=== PATIENT | female | born 1955 | race American Indian/Alaskan Native ===

== ENCOUNTER 2018-07-31 20:26 | Inpatient (IN) | payer BC ==
--- NOTE | 2018-07-31 21:33 | Emergency Department Report ---
Blank Doc - Documentation Documentation: This is a 62-year-old female that presents with chest pain that describes as p ressure. Denies radiation or SOB. This initial assessment/diagnostic orders/clinical plan/treatment(s) is/are subject to change based on patient's health status, clinical progression and re-assessment by fellow clinical providers in the ED. Further treatment and workup at subsequent clinical providers discretion. Patient/guardians urged not to elope from the ED as their condition may be serious if not clinically assessed and managed. Initial orders include: 1- Patient sent to MAIN ED for further evaluation and treatment 2- labs 3- EKG 4- CXR
[2018-07-31 22:00] LABS: Basophils # (Auto) 0.1 K/mm3 (0.0-0.1); Basophils % (Auto) 1.1 % (0.0-1.8); Eosinophils # (Auto) 0.2 K/mm3 (0.0-0.4); Eosinophils % (Auto) 3.3 % (0.0-4.3); Hematocrit 34.5 % (30.3-42.9); Hemoglobin 11.5 gm/dl (10.1-14.3); Lymphocytes # (Auto) 2.7 K/mm3 (1.2-5.4); Lymphocytes % (Auto) 35.9 % (13.4-35.0); Mean Corpuscular HGB Conc 33 % (30-34); Mean Corpuscular Volume 80 fl (79-97); Monocytes # (Auto) 0.5 K/mm3 (0.0-0.8); Monocytes % (Auto) 6.5 % (0.0-7.3); Platelet Count 331 K/mm3 (140-440); Red Blood Count 4.31 M/mm3 (3.65-5.03); Red Cell Distribution Width 14.3 % (13.2-15.2)
[2018-07-31 22:14] LABS: BUN/Creatinine Ratio 16; Blood Urea Nitrogen 19 mg/dL (7-17); Calcium 9.6 mg/dL (8.4-10.2); Hemolysis Index 3; INR 0.92 (0.87-1.13)
[2018-07-31 22:15] LABS: Partial Thromboplastin Time 30.2 Sec. (24.2-36.6)
[2018-07-31 22:23] LABS: Bacteria,Urine 1+ /HPF (Negative); Bilirubin,Urine NEG (Negative); Blood,Urine SM (Negative); Color,Urine Yellow (Yellow); Mucus,Urine FEW /HPF; Protein,Urine <15 mg/dL mg/dL (Negative); Urobilinogen,Urine < 2.0 mg/dL (<2.0)
--- NOTE | 2018-07-31 23:13 | XRay Report ---
PROCEDURE: XR CHEST ROUTINE 2V TECHNIQUE: PA and lateral chest radiographs were obtained. HISTORY: Chest Pain COMPARISONS: None. FINDINGS: There is no evidence of infiltrate, pneumothorax or pleural fluid collection. The cardiac silhouette is normal size. The thoracic aorta is tortuous. The bony structures are notable for dextrocurvature of the thoracic spine. IMPRESSION: 1. No evidence of an acute pulmonary process. 2. Tortuosity thoracic aorta. 3. Dextrocurvature thoracic spine. This document is electronically signed by Jennifer Penaloza MD., August 01 2018 12:11:27 AM ET
--- NOTE | 2018-07-31 23:44 | Emergency Department Report ---
<CARMEN CHOWDARY - Last Filed: 08/18/18 03:47> ED General Adult HPI - General Chief complaint: Chest Pain Stated complaint: CHEST PRESSURE Time Seen by Provider: 07/31/18 21:31 Source: patient Mode of arrival: Ambulatory Limitations: No Limitations - History of Present Illness Initial comments: 62-year-old -Mac[place] female presents to the emergency room for pressure to the mid chest for 2 days. Patient reports he feels like something sitting there. Patient denies any shortness of breathing or nausea or vomiting. Patient does admit to a past medical history of hypertension and hyperthyroidism. Patient reports she's never had a cardiac workup. She does not have a primary care provider but does have a endocrine provider. Onset/Timin -: days(s) Location: chest Quality: other (pressure) Consistency: constant Improves with: none Worsens with: none Associated Symptoms: other (urinary frequency) Treatments Prior to Arrival: none - Related Data Home Medications Medication Instructions Recorded Confirmed Last Taken Olmesartan/Hydrochlorothiazide 1 tab PO QDAY 08/01/18 08/01/18 Unknown [Benicar HCT 40-25 mg] Previous Rx's Medication Instructions Recorded Last Taken Type Cyclobenzaprine [Flexeril 10 MG 5 mg PO TID PRN #15 tablet 08/03/18 Unknown Rx TAB] traMADol [Ultram 50 MG tab] 100 mg PO Q6H PRN #20 tablet 08/03/18 Unknown Rx Allergies Allergy/AdvReac Type Severity Reaction Status Date / Time No Known Allergies Allergy Verified 07/31/18 21:13 ED Review of Systems Comment: All other systems reviewed and negative Constitutional: denies: chills, fever Eyes: denies: eye pain, eye discharge, vision change ENT: denies: ear pain, throat pain Respiratory: denies: cough, shortness of breath, wheezing Cardiovascular: chest pain Endocrine: no symptoms reported Gastrointestinal: denies: abdominal pain, nausea, diarrhea Genitourinary: urgency, frequency Musculoskeletal: denies: back pain, joint swelling, arthralgia Skin: denies: rash, lesions Neurological: denies: headache, weakness, paresthesias Psychiatric: denies: anxiety, depression ED Past Medical Hx - Past Medical History Previous Medical History?: Yes Hx Hypertension: Yes Additional medical history: murmur. Hyperthyroid - Surgical History Past Surgical History?: Yes Additional Surgical History: back - Social History Smoking Status: Never Smoker Substance Use Type: None - Medications Home Medications: Home Medications Medication Instructions Recorded Confirmed Last Taken Type Olmesartan/Hydrochlorothiazide 1 tab PO QDAY 08/01/18 08/01/18 Unknown History [Benicar HCT 40-25 mg] Cyclobenzaprine [Flexeril 10 MG 5 mg PO TID PRN #15 tablet 08/03/18 Unknown Rx TAB] traMADol [Ultram 50 MG tab] 100 mg PO Q6H PRN #20 tablet 08/03/18 Unknown Rx ED Physical Exam - General Limitations: No Limitations General appearance: alert, in no apparent distress - Head Head exam: Present: atraumatic, normocephalic - Eye Eye exam: Present: normal appearance - ENT ENT exam: Present: mucous membranes moist - Respiratory Respiratory exam: Present: normal lung sounds bilaterally. Absent: chest wall tenderness - Cardiovascular Cardiovascular Exam: Present: regular rate, normal rhythm. Absent: systolic murmur, diastolic murmur, rubs, gallop - GI/Abdominal GI/Abdominal exam: Present: soft, normal bowel sounds - Extremities Exam Extremities exam: Present: normal inspection. Absent: pedal edema - Back Exam Back exam: Present: normal inspection, full ROM - Neurological Exam Neurological exam: Present: alert, oriented X3, normal gait - Psychiatric Psychiatric exam: Present: normal affect, normal mood - Skin Skin exam: Present: warm, dry, intact, normal color. Absent: rash ED Medical Decision Making - Lab Data Result diagrams: 08/02/18 08:48 08/03/18 07:49 Lab Results 07/31/18 07/31/18 07/31/18 Range/Units 21:43 21:51 21:51 WBC 7.5 (4.5-11.0) K/mm3 RBC 4.31 (3.65-5.03) M/mm3 Hgb 11.5 (10.1-14.3) gm/dl Hct 34.5 (30.3-42.9) % MCV 80 (79-97) fl MCH 27 L (28-32) pg MCHC 33 (30-34) % RDW 14.3 (13.2-15.2) % Plt Count 331 (140-440) K/mm3 Lymph % (Auto) 35.9 H (13.4-35.0) % Gage % (Auto) 6.5 (0.0-7.3) % Eos % (Auto) 3.3 (0.0-4.3) % Baso % (Auto) 1.1 (0.0-1.8) % Lymph # 2.7 (1.2-5.4) K/mm3 Gage # 0.5 (0.0-0.8) K/mm3 Eos # 0.2 (0.0-0.4) K/mm3 Baso # 0.1 (0.0-0.1) K/mm3 Seg Neutrophils % 53.2 (40.0-70.0) % Seg Neutrophils # 4.0 (1.8-7.7) K/mm3 PT 12.9 (12.2-14.9) Sec. INR 0.92 (0.87-1.13) APTT 30.2 (24.2-36.6) Sec. Sodium (137-145) mmol/L Potassium (3.6-5.0) mmol/L Chloride (98-107) mmol/L Carbon Dioxide (22-30) mmol/L Anion Gap mmol/L BUN (7-17) mg/dL Creatinine (0.7-1.2) mg/dL Estimated GFR ml/min BUN/Creatinine Ratio % Glucose (65-100) mg/dL Calcium (8.4-10.2) mg/dL Troponin T (0.00-0.029) ng/mL Urine Color Yellow (Yellow) Urine Turbidity Cloudy (Clear) Urine pH 6.0 (5.0-7.0) Ur Specific [place] 1.023 (1.003-1.030) Urine Protein <15 mg/dl (Negative) mg/dL Urine Glucose (UA) Neg (Negative) mg/dL Urine Ketones Neg (Negative) mg/dL Urine Blood Sm (Negative) Urine Nitrite Neg (Negative) Urine Bilirubin Neg (Negative) Urine Urobilinogen < 2.0 (<2.0) mg/dL Ur Leukocyte Esterase Lg (Negative) Urine WBC (Auto) 145.0 H (0.0-6.0) /HPF Urine RBC (Auto) 29.0 (0.0-6.0) /HPF U Epithel Cells (Auto) 13.0 (0-13.0) /HPF Urine Bacteria (Auto) 1+ (Negative) /HPF Urine Mucus Few /HPF 07/31/18 Range/Units 21:51 WBC (4.5-11.0) K/mm3 RBC (3.65-5.03) M/mm3 Hgb (10.1-14.3) gm/dl Hct (30.3-42.9) % MCV (79-97) fl MCH (28-32) pg MCHC (30-34) % RDW (13.2-15.2) % Plt Count (140-440) K/mm3 Lymph % (Auto) (13.4-35.0) % [place] % (Auto) (0.0-7.3) % Eos % (Auto) (0.0-4.3) % Baso % (Auto) (0.0-1.8) % Lymph # (1.2-5.4) K/mm3 Gage # (0.0-0.8) K/mm3 Eos # (0.0-0.4) K/mm3 Baso # (0.0-0.1) K/mm3 Seg Neutrophils % (40.0-70.0) % Seg Neutrophils # (1.8-7.7) K/mm3 PT (12.2-14.9) Sec. INR (0.87-1.13) APTT (24.2-36.6) Sec. Sodium 140 (137-145) mmol/L Potassium 3.5 L (3.6-5.0) mmol/L Chloride 104.1 (98-107) mmol/L Carbon Dioxide 27 (22-30) mmol/L Anion Gap 12 mmol/L BUN 19 H (7-17) mg/dL Creatinine 1.2 (0.7-1.2) mg/dL Estimated GFR 45 ml/min BUN/Creatinine Ratio 16 % Glucose 102 H (65-100) mg/dL Calcium 9.6 (8.4-10.2) mg/dL Troponin T < 0.010 (0.00-0.029) ng/mL Urine Color (Yellow) Urine Turbidity (Clear) Urine pH (5.0-7.0) Ur Specific [place] (1.003-1.030) Urine Protein (Negative) mg/dL Urine Glucose (UA) (Negative) mg/dL Urine Ketones (Negative) mg/dL Urine Blood (Negative) Urine Nitrite (Negative) Urine Bilirubin (Negative) Urine Urobilinogen (<2.0) mg/dL Ur Leukocyte Esterase (Negative) Urine WBC (Auto) (0.0-6.0) /HPF Urine RBC (Auto) (0.0-6.0) /HPF U Epithel Cells (Auto) (0-13.0) /HPF Urine Bacteria (Auto) (Negative) /HPF Urine Mucus /HPF - EKG Data Rate: bradycardia - Radiology Data Radiology results: report reviewed Patient: NEFTALY MAYER MR#: [id number] : 1955 Acct:[id number] Age/Sex: 62 / F ADM Date: 07/31/18 Loc: ED Attending Dr: Ordering Physician: ANGELINA CRAIN NP Date of Service: 07/31/18 Procedure(s): XR chest routine 2V Accession Number(s): [id number] cc: ANGELINA CRAIN NP Fluoro Time In Minutes: PROCEDURE: XR CHEST ROUTINE 2V TECHNIQUE: PA and lateral chest radiographs were obtained. HISTORY: Chest Pain COMPARISONS: None. FINDINGS: There is no evidence of infiltrate, pneumothorax or pleural fluid collection. The cardiac silhouette is normal size. The thoracic aorta is tortuous. The bony structures are notable for dextrocurvature of the thoracic spine. IMPRESSION: 1. No evidence of an acute pulmonary process. 2. Tortuosity thoracic aorta. 3. Dextrocurvature thoracic spine. This document is electronically signed by Jennifer Penaloza MD., August 01 2018 12:11:27 AM ET Transcribed By: ED Dictated By: JENNIFER PENALOZA MD Electronically Authenticated By: JENNIFER PENALOZA MD Signed Date/Time: 07/31/183 DD/ 27 TD/TT: 07/31/182228 Critical Care Time: Yes (30) ED Disposition Clinical Impression: Chest pain at rest Disposition: DC-[id number] OP ADMIT IP TO THIS HOSP Is pt being admited?: No Condition: Stable <GEORGIANA CHAVEZ - Last Filed: 08/19/18 18:35> ED Review of Systems ROS: Stated complaint: CHEST PRESSURE Other details as noted in HPI ED Course Vital Signs 07/31/18 07/31/18 08/01/18 21:14 21:31 02:31 Temperature 97.9 F 97.9 F Pulse Rate 63 63 Respiratory 18 18 Rate Blood Pressure 133/92 133/92 Blood Pressure [Right] O2 Sat by Pulse 98 98 98 Oximetry 08/01/18 08/01/18 08/01/18 02:33 02:41 02:51 Temperature Pulse Rate Respiratory 18 Rate Blood Pressure 129/84 129/84 Blood Pressure [Right] O2 Sat by Pulse 99 99 99 Oximetry 08/01/18 08/01/18 08/01/18 03:01 03:11 03:13 Temperature 97.8 F Pulse Rate 52 L Respiratory 15 Rate Blood Pressure 130/85 130/85 Blood Pressure 118/68 [Right] O2 Sat by Pulse 100 99 99 Oximetry 08/01/18 08/01/18 08/01/18 03:21 03:31 03:41 Temperature Pulse Rate Respiratory Rate Blood Pressure 130/85 130/85 130/85 Blood Pressure [Right] O2 Sat by Pulse 98 99 93 Oximetry ED Medical Decision Making - Lab Data Result diagrams: 08/02/18 08:48 08/03/18 07:49 Critical care attestation.: If time is entered above; I have spent that time in minutes in the direct care of this critically ill patient, excluding procedure time.
[2018-08-01] MEDS ORDERED: MACROBID PO ONE (00:53)
[2018-08-01] MEDS ORDERED: NACL 0.9% 500 ML 500 ML IV ONE (01:00)
[2018-08-01] MEDS ORDERED: LEVAQUIN 500MG/100ML 500 MG/100 ML BAG IV ONE (01:00)
[2018-08-01] MEDS ORDERED: SODIUM CHLORIDE FLUSH SYRINGE 10 ML IV PRN ×2 (01:12)
[2018-08-01] MEDS ORDERED: TYLENOL PO PRN (01:12)
[2018-08-01] MEDS ORDERED: MORPHINE IV PRN (01:12)
[2018-08-01] MEDS ORDERED: NITROSTAT SL PRN (01:13)
--- NOTE | 2018-08-01 01:28 | History and Physical Report ---
<NELSON CASE - Last Filed: 08/01/18 02:07> History of Present Illness Date of examination: 08/01/18 Date of admission: 08/01/2018 Chief complaint: Chest pressure History of present illness: 62-year-old -Vietnamese female with history of hypertension and hyperthyroidism presents to [facility] ED with complaints of substernal right sided chest pain. Patient is an employee of [employer] and decided to come to the ED to get checked out after experiencing intermittent chest pain for the past 2-3 days. She states that she has been unable to get comfortable in the bed due to right- sided chest pressure. She describes her pain as "chest pressure" and rates it 6/10. Her chest pain is nonradiating. Patient states that she has never had a cardiac workup and does not have a PCP. She follows with [facility] for her hyperthyroidism. Denies nausea, vomiting, diaphoresis, radiation of pain, cough, hemoptysis, dyspnea, headache, recent sick contact. Past History Past Medical History: hypertension, other (hyperthyroidism) Past Surgical History: Other (Back surgery) Social history: no significant social history Family history: no significant family history Medications and Allergies Allergies Allergy/AdvReac Type Severity Reaction Status Date / Time No Known Allergies Allergy Verified 07/31/18 21:13 Home Medications Medication Instructions Recorded Confirmed Last Taken Type Olmesartan/Hydrochlorothiazide 1 tab PO QDAY 08/01/18 08/01/18 Unknown History [Benicar HCT 40-25 mg] Active Meds: Active Medications Acetaminophen (Tylenol) 650 mg PO Q4H PRN PRN Reason: Pain MILD(1-3)/Fever >100.5/[place] Aspirin (Baby Aspirin) 81 mg PO QDAY SILAS Atorvastatin Calcium (Lipitor) 20 mg PO QHS SILAS Clopidogrel Bisulfate (Plavix) 75 mg PO QDAY SILAS Sodium Chloride (Nacl 0.9% 500 Ml) 500 mls @ 999 mls/hr IV ONCE ONE Stop: 08/01/18 01:30 Levofloxacin/Dextrose (Levaquin 500mg/100ml) 500 mg in 100 mls @ 100 mls/hr IV ONCE ONE Stop: 08/01/18 01:59 Morphine Sulfate (Morphine) 2 mg IV Q4H PRN PRN Reason: Pain, Moderate (4-6) Stop: 08/02/18 23:59 Nitroglycerin (Nitrostat) 0.4 mg SL Q5M PRN PRN Reason: Chest Pain Ondansetron HCl (Zofran) 4 mg IV Q8H PRN PRN Reason: Nausea And Vomiting Sodium Chloride (Sodium Chloride Flush Syringe 10 Ml) 10 ml IV BID SILAS Sodium Chloride (Sodium Chloride Flush Syringe 10 Ml) 10 ml IV PRN PRN PRN Reason: LINE FLUSH Sodium Chloride (Sodium Chloride Flush Syringe 10 Ml) 10 ml IV PRN PRN PRN Reason: LINE FLUSH Review of Systems All systems: negative (reviewed and no additional remarkable complaints except as noted below) Cardiovascular: chest pain (chest pressure) Exam - Physical Exam Narrative exam: Physical exam General appearance: Present: No acute distress, alert and oriented 3, pleasant, older adult female - EENT Eyes: Present: PERRL, EOM intact ENT: hearing intact, normal dentition - Neck Neck: Present: supple, normal ROM - Respiratory Respiratory effort: Non-labored Respiratory: bilateral: diminished (bases) - Cardiovascular Heart rate: 58 (bpm) Rhythm: Sinus bradycardia, Heart Sounds: Present: S1 & S2. Absent: rub, click - Extremities Extremities: no ischemia, pulses intact, - Peripheral Assessment Peripheral Pulses: within normal limits - Abdominal General gastrointestinal: soft, non-tender, normal bowel sounds - Integumentary Integumentary: Present: warm, dry - Musculoskeletal Musculoskeletal: Able to move all extremities - Psychiatric Psychiatric: CN II-XII intact, cooperative - Constitutional Vitals: Temp Pulse Resp BP Pulse Ox 97.9 F 63 18 133/92 98 07/31/18 21:31 07/31/18 21:31 07/31/18 21:31 07/31/18 21:31 07/31/18 21:31 Results - Labs CBC & Chem 7: 07/31/18 21:51 07/31/18 21:51 Labs: Laboratory Last Values WBC 7.5 K/mm3 (4.5-11.0) 07/31/18 21:51 RBC 4.31 M/mm3 (3.65-5.03) 07/31/18 21:51 Hgb 11.5 gm/dl (10.1-14.3) 07/31/18 21:51 Hct 34.5 % (30.3-42.9) 07/31/18 21:51 MCV 80 fl (79-97) 07/31/18 21:51 MCH 27 pg (28-32) L 07/31/18 21:51 MCHC 33 % (30-34) 07/31/18 21:51 RDW 14.3 % (13.2-15.2) 07/31/18 21:51 Plt Count 331 K/mm3 (140-440) 07/31/18 21:51 Lymph % (Auto) 35.9 % (13.4-35.0) H 07/31/18 21:51 [place] % (Auto) 6.5 % (0.0-7.3) 07/31/18 21:51 Eos % (Auto) 3.3 % (0.0-4.3) 07/31/18 21:51 Baso % (Auto) 1.1 % (0.0-1.8) 07/31/18 21:51 Lymph # 2.7 K/mm3 (1.2-5.4) 07/31/18 21:51 [place] # 0.5 K/mm3 (0.0-0.8) 07/31/18 21:51 Eos # 0.2 K/mm3 (0.0-0.4) 07/31/18 21:51 Baso # 0.1 K/mm3 (0.0-0.1) 07/31/18 21:51 Seg Neutrophils % 53.2 % (40.0-70.0) 07/31/18 21:51 Seg Neutrophils # 4.0 K/mm3 (1.8-7.7) 07/31/18 21:51 PT 12.9 Sec. (12.2-14.9) 07/31/18 21:51 INR 0.92 (0.87-1.13) 07/31/18 21:51 APTT 30.2 Sec. (24.2-36.6) 07/31/18 21:51 Sodium 140 mmol/L (137-145) 07/31/18 21:51 Potassium 3.5 mmol/L (3.6-5.0) L 07/31/18 21:51 Chloride 104.1 mmol/L (98-107) 07/31/18 21:51 Carbon Dioxide 27 mmol/L (22-30) 07/31/18 21:51 12 mmol/L 07/31/18 21:51 BUN 19 mg/dL (7-17) H 07/31/18 21:51 1.2 mg/dL (0.7-1.2) 07/31/18 21:51 Estimated GFR 45 ml/min 07/31/18 21:51 16 % 07/31/18 21:51 Glucose 102 mg/dL (65-100) H 07/31/18 21:51 Calcium 9.6 mg/dL (8.4-10.2) 07/31/18 21:51 < 0.010 ng/mL (0.00-0.029) 07/31/18 21:51 Yellow (Yellow) 07/31/18 21:43 Cloudy (Clear) 07/31/18 21:43 6.0 (5.0-7.0) 07/31/18 21:43 Ur Specific [place] 1.023 (1.003-1.030) 07/31/18 21:43 <15 mg/dl mg/dL (Negative) 07/31/18 21:43 Neg mg/dL (Negative) 07/31/18 21:43 Neg mg/dL (Negative) 07/31/18 21:43 Sm (Negative) 07/31/18 21:43 Neg (Negative) 07/31/18 21:43 Neg (Negative) 07/31/18 21:43 < 2.0 mg/dL (<2.0) 07/31/18 21:43 Ur Leukocyte Esterase Lg (Negative) 07/31/18 21:43 145.0 /HPF (0.0-6.0) H 07/31/18 21:43 29.0 /HPF (0.0-6.0) 07/31/18 21:43 U Epithel Cells (Auto) 13.0 /HPF (0-13.0) 07/31/18 21:43 1+ /HPF (Negative) 07/31/18 21:43 Few /HPF 07/31/18 21:43 - Imaging and Cardiology EKG: image reviewed (sinus bradycardia, 58 bpm, ) Chest x-ray: report reviewed (No evidence of an acute cardiopulmonary abnormalities. ), image reviewed Assessment and Plan Assessment and plan: 62-year-old -Vietnamese female with history of hypertension and hyperthyroidism presents to [facility] ED with complaints of substernal right sided chest pain. CXR unrevealing for acute cardio or pulmonary abnormalities. Troponin negative 1. D-Dimer elevated at 362.45. EKG sinus bradycardia at 58 bpm questionable old inferior infarct. Patient denies previous cardiac workup. Urine analysis showed urine WBC of 145. She will be admitted as OBS to telemetry unit for further evaluation. Acute chest pain Rule out ACS Rule out PE Urinary tract infection Hypertension TAMARA vs CKD3 History of hyperthyroidism Plan Continue supportive care Continuous telemetry monitoring Repeat troponin pending Lipid panel pending V/Q scan pending Echo and Lexiscan pending Cardiology consult Urine culture pending Start Rocephin 1 g every 24 hours Start ASA, Statin Monitor BMP BUN 19, GFR 45 no baseline labs on file. Will hydrate with NS@ 125ml/hr; if no improvement will consider consulting Nephrology Monitor BP Losartan 25 mg daily; IV hydralazine when necessary DVT PPX on Lovenox and SCD's Medication reconciliation pending Advance Directives: No VTE prophylaxis?: Chemical Plan of care discussed with patient/family: Yes <CHRISTINA QUICK E - Last Filed: 08/01/18 06:44> Medications and Allergies Active Meds: Active Medications Acetaminophen (Tylenol) 650 mg PO Q4H PRN PRN Reason: Pain MILD(1-3)/Fever >100.5/[place] Aspirin (Baby Aspirin) 81 mg PO QDAY SILAS Atorvastatin Calcium (Lipitor) 20 mg PO QHS SILAS Clopidogrel Bisulfate (Plavix) 75 mg PO QDAY SILAS Enoxaparin Sodium (Lovenox) 40 mg SUB-Q QDAY@2200 SILAS Hydralazine HCl (Apresoline) 10 mg IV Q4H PRN PRN Reason: Blood Pressure Ceftriaxone Sodium (Rocephin/Ns 1 Gm/50 Ml) 1 gm in 50 mls @ 100 mls/hr IV Q24HR SILAS; Protocol Sodium Chloride (Nacl 0.9% 1000 Ml) 1,000 mls @ 125 mls/hr IV DIRECT SILAS Losartan Potassium (Cozaar) 25 mg PO QDAY SILAS Morphine Sulfate (Morphine) 2 mg IV Q4H PRN PRN Reason: Pain, Moderate (4-6) Stop: 08/02/18 23:59 Nitroglycerin (Nitrostat) 0.4 mg SL Q5M PRN PRN Reason: Chest Pain Ondansetron HCl (Zofran) 4 mg IV Q8H PRN PRN Reason: Nausea And Vomiting Sodium Chloride (Sodium Chloride Flush Syringe 10 Ml) 10 ml IV BID SILAS Sodium Chloride (Sodium Chloride Flush Syringe 10 Ml) 10 ml IV PRN PRN PRN Reason: LINE FLUSH Sodium Chloride (Sodium Chloride Flush Syringe 10 Ml) 10 ml IV PRN PRN PRN Reason: LINE FLUSH Exam - Constitutional Vitals: Temp Pulse Resp BP Pulse Ox 97.9 F 63 18 133/92 99 07/31/18 21:31 07/31/18 21:31 08/01/18 02:33 07/31/18 21:31 08/01/18 02:33 Results - Labs CBC & Chem 7: 07/31/18 21:51 07/31/18 21:51 Labs: Laboratory Last Values WBC 7.5 K/mm3 (4.5-11.0) 07/31/18 21:51 RBC 4.31 M/mm3 (3.65-5.03) 07/31/18 21:51 Hgb 11.5 gm/dl (10.1-14.3) 07/31/18 21:51 Hct 34.5 % (30.3-42.9) 07/31/18 21:51 MCV 80 fl (79-97) 07/31/18 21:51 MCH 27 pg (28-32) L 07/31/18 21:51 MCHC 33 % (30-34) 07/31/18 21:51 RDW 14.3 % (13.2-15.2) 07/31/18 21:51 Plt Count 331 K/mm3 (140-440) 07/31/18 21:51 Lymph % (Auto) 35.9 % (13.4-35.0) H 07/31/18 21:51 [place] % (Auto) 6.5 % (0.0-7.3) 07/31/18 21:51 Eos % (Auto) 3.3 % (0.0-4.3) 07/31/18 21:51 Baso % (Auto) 1.1 % (0.0-1.8) 07/31/18 21:51 Lymph # 2.7 K/mm3 (1.2-5.4) 07/31/18 21:51 [place] # 0.5 K/mm3 (0.0-0.8) 07/31/18 21:51 Eos # 0.2 K/mm3 (0.0-0.4) 07/31/18 21:51 Baso # 0.1 K/mm3 (0.0-0.1) 07/31/18 21:51 Seg Neutrophils % 53.2 % (40.0-70.0) 07/31/18 21:51 Seg Neutrophils # 4.0 K/mm3 (1.8-7.7) 07/31/18 21:51 PT 12.9 Sec. (12.2-14.9) 07/31/18 21:51 INR 0.92 (0.87-1.13) 07/31/18 21:51 APTT 30.2 Sec. (24.2-36.6) 07/31/18 21:51 362.45 ng/mlDDU (0-234) H 08/01/18 01:19 Sodium 140 mmol/L (137-145) 07/31/18 21:51 Potassium 3.5 mmol/L (3.6-5.0) L 07/31/18 21:51 Chloride 104.1 mmol/L (98-107) 07/31/18 21:51 Carbon Dioxide 27 mmol/L (22-30) 07/31/18 21:51 12 mmol/L 07/31/18 21:51 BUN 19 mg/dL (7-17) H 07/31/18 21:51 1.2 mg/dL (0.7-1.2) 07/31/18 21:51 Estimated GFR 45 ml/min 07/31/18 21:51 16 % 07/31/18 21:51 Glucose 102 mg/dL (65-100) H 07/31/18 21:51 Calcium 9.6 mg/dL (8.4-10.2) 07/31/18 21:51 < 0.010 ng/mL (0.00-0.029) 08/01/18 01:19 Triglycerides 125 mg/dL (2-149) 08/01/18 01:19 Cholesterol 187 mg/dL (50-199) 08/01/18 01:19 114 mg/dL (50-130) 08/01/18 01:19 68 mg/dL (40-59) H 08/01/18 01:19 2.75 % 08/01/18 01:19 Yellow (Yellow) 07/31/18 21:43 Cloudy (Clear) 07/31/18 21:43 6.0 (5.0-7.0) 07/31/18 21:43 Ur Specific [place] 1.023 (1.003-1.030) 07/31/18 21:43 <15 mg/dl mg/dL (Negative) 07/31/18 21:43 Neg mg/dL (Negative) 07/31/18 21:43 Neg mg/dL (Negative) 07/31/18 21:43 Sm (Negative) 07/31/18 21:43 Neg (Negative) 07/31/18 21:43 Neg (Negative) 07/31/18 21:43 < 2.0 mg/dL (<2.0) 07/31/18 21:43 Ur Leukocyte Esterase Lg (Negative) 07/31/18 21:43 145.0 /HPF (0.0-6.0) H 07/31/18 21:43 29.0 /HPF (0.0-6.0) 07/31/18 21:43 U Epithel Cells (Auto) 13.0 /HPF (0-13.0) 07/31/18 21:43 1+ /HPF (Negative) 07/31/18 21:43 Few /HPF 07/31/18 21:43 Assessment and Plan Assessment and plan: 62-year-old lady with a history of hypertension, hypothyroidism, some emergency room with complaints of right-sided chest pain. Agree with as discussed above except d/c echo, cardiology consult
[2018-08-01] MEDS ORDERED: APRESOLINE IV PRN (01:40)
[2018-08-01 02:08] LABS: Chol/HDL Ratio 2.75 %; HDL Cholesterol 68 mg/dL (40-59); LDL Cholesterol,Direct 114 mg/dL (50-130)
[2018-08-01] MEDS: NACL 0.9% 1000 ML 1,000 ML IV SCH ×3 (05:06→21:37)
--- NOTE | 2018-08-01 09:12 | Nuclear Medicine Report ---
LUNG SCAN, VENTILATION AND PERFUSION: History: Chest pain. Technique: 5mci of Tc99m MAA was infused for the perfusion images. 15mci XE 133 gas was inhaled for the ventilatory images. Correlation is made with a chest x-ray dated 07/31/18. Findings: Inhalation of Xenon gas demonstrates a normal distribution of the activity throughout both lungs. The wash out phases show no focal retention of activity. After injection of Technetium 99m macroaggregated albumin gamma camera imaging of the lungs in multiple projections demonstrates normal pulmonary contours with a homogeneous distribution of activity. No focal areas of perfusion deficiency are identified. IMPRESSION: Low probability for pulmonary embolus.
[2018-08-01] MEDS ORDERED: PLAVIX PO SCH (10:00)
[2018-08-01] MEDS ORDERED: PERCOCET 5/325 PO PRN (11:01)
[2018-08-01] MEDS: ROCEPHIN/NS 1 GM/50 ML 1 GM/50 ML BAG IV SCH (11:34)
[2018-08-01] MEDS: COZAAR PO SCH (11:35)
[2018-08-01] MEDS: SODIUM CHLORIDE FLUSH SYRINGE 10 ML IV SCH ×2 (11:35→23:54)
[2018-08-01] MEDS: PERCOCET 5/325 PO PRN ×2 (13:29→13:33)
--- NOTE | 2018-08-01 14:45 | Progress Note ---
Assessment and Plan Assessment and plan: 62-year-old -[place] female with history of hypertension and hyperthyroidism presents to [facility] ED with complaints of substernal right sided chest pain. CXR unrevealing for acute cardio or pulmonary abnormalities. Troponin negative 3. D-Dimer elevated at 362 and V/Q scan was negative. Urine analysis showed urine WBC of 145. Acute chest pain - Cardiac enzymes are negative, EKG no STEMI - Stress test is pending, will be done tomorrow because of the VQ scan - Pain control with tramadol Elevated d-dimer; VQ scan low probability for PE Urinary tract infection; patient is on Rocephin Hypertension; resume medications TAMARA vs CKD3; creatinine this morning is 1.3. I'll hold the losartan History of hyperthyroidism; not on any medication DVT prophylaxis - On Lovenox 30 mg Disposition - Continue inpatient care - Will be discharged tomorrow if stress is negative History Interval history: Patient was seen in urology's morning, patient still complained of chest pain. Hospitalist Physical - Physical exam Narrative exam: Not in cardiopulmonary distress. The patient appeared well nourished and normally developed. Vital signs as documented. Head exam is unremarkable. No scleral icterus . Neck is without jugular venous distension, thyromegaly, or carotid bruits. Lungs are clear to auscultation. Cardiac exam reveals regular rate and Rhythm. First and second heart sounds normal. No murmurs, rubs or gallops. Abdominal exam reveals normal bowel sounds, no masses, no organomegaly and no aortic enlargement. Extremities are nonedematous and both femoral and pedal pulses are normal. 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 No focal weakness. - Constitutional Vitals: Temp Pulse Resp BP Pulse Ox 98.3 F 60 16 143/85 99 08/01/18 07:24 08/01/18 10:38 08/01/18 07:24 08/01/18 07:24 08/01/18 07:24 Results - Labs CBC & Chem 7: 08/02/18 08:48 08/02/18 08:48 Labs: Laboratory Last Values WBC 7.5 K/mm3 (4.5-11.0) 07/31/18 21:51 RBC 4.31 M/mm3 (3.65-5.03) 07/31/18 21:51 Hgb 11.5 gm/dl (10.1-14.3) 07/31/18 21:51 Hct 34.5 % (30.3-42.9) 07/31/18 21:51 MCV 80 fl (79-97) 07/31/18 21:51 MCH 27 pg (28-32) L 07/31/18 21:51 MCHC 33 % (30-34) 07/31/18 21:51 RDW 14.3 % (13.2-15.2) 07/31/18 21:51 Plt Count 331 K/mm3 (140-440) 07/31/18 21:51 Lymph % (Auto) 35.9 % (13.4-35.0) H 07/31/18 21:51 [place] % (Auto) 6.5 % (0.0-7.3) 07/31/18 21:51 Eos % (Auto) 3.3 % (0.0-4.3) 07/31/18 21:51 Baso % (Auto) 1.1 % (0.0-1.8) 07/31/18 21:51 Lymph # 2.7 K/mm3 (1.2-5.4) 07/31/18 21:51 [place] # 0.5 K/mm3 (0.0-0.8) 07/31/18 21:51 Eos # 0.2 K/mm3 (0.0-0.4) 07/31/18 21:51 Baso # 0.1 K/mm3 (0.0-0.1) 07/31/18 21:51 Seg Neutrophils % 53.2 % (40.0-70.0) 07/31/18 21:51 Seg Neutrophils # 4.0 K/mm3 (1.8-7.7) 07/31/18 21:51 PT 12.9 Sec. (12.2-14.9) 07/31/18 21:51 INR 0.92 (0.87-1.13) 07/31/18 21:51 APTT 30.2 Sec. (24.2-36.6) 07/31/18 21:51 362.45 ng/mlDDU (0-234) H 08/01/18 01:19 Sodium 140 mmol/L (137-145) 07/31/18 21:51 Potassium 3.5 mmol/L (3.6-5.0) L 07/31/18 21:51 Chloride 104.1 mmol/L (98-107) 07/31/18 21:51 Carbon Dioxide 27 mmol/L (22-30) 07/31/18 21:51 12 mmol/L 07/31/18 21:51 BUN 19 mg/dL (7-17) H 07/31/18 21:51 1.2 mg/dL (0.7-1.2) 07/31/18 21:51 Estimated GFR 45 ml/min 07/31/18 21:51 16 % 07/31/18 21:51 Glucose 102 mg/dL (65-100) H 07/31/18 21:51 Calcium 9.6 mg/dL (8.4-10.2) 07/31/18 21:51 < 0.010 ng/mL (0.00-0.029) 08/01/18 01:19 Triglycerides 125 mg/dL (2-149) 08/01/18 01:19 Cholesterol 187 mg/dL (50-199) 08/01/18 01:19 114 mg/dL (50-130) 08/01/18 01:19 68 mg/dL (40-59) H 08/01/18 01:19 2.75 % 08/01/18 01:19 Yellow (Yellow) 07/31/18 21:43 Cloudy (Clear) 07/31/18 21:43 6.0 (5.0-7.0) 07/31/18 21:43 Ur Specific [place] 1.023 (1.003-1.030) 07/31/18 21:43 <15 mg/dl mg/dL (Negative) 07/31/18 21:43 Neg mg/dL (Negative) 07/31/18 21:43 Neg mg/dL (Negative) 07/31/18 21:43 Sm (Negative) 07/31/18 21:43 Neg (Negative) 07/31/18 21:43 Neg (Negative) 07/31/18 21:43 < 2.0 mg/dL (<2.0) 07/31/18 21:43 Ur Leukocyte Esterase Lg (Negative) 07/31/18 21:43 145.0 /HPF (0.0-6.0) H 07/31/18 21:43 29.0 /HPF (0.0-6.0) 07/31/18 21:43 U Epithel Cells (Auto) 13.0 /HPF (0-13.0) 07/31/18 21:43 1+ /HPF (Negative) 07/31/18 21:43 Few /HPF 07/31/18 21:43 Active Medications - Current Medications Current Medications: Generic Name Dose Route Start Last Admin Trade Name Freq PRN Reason Stop Dose Admin Acetaminophen 650 mg 08/01/18 01:12 Tylenol PO Q4H PRN Pain MILD(1-3)/Fever >100.5/[place] Aspirin 81 mg 08/02/18 10:00 Baby Aspirin PO QDAY [facility] Atorvastatin Calcium 20 mg 08/01/18 22:00 Lipitor PO QHS SILAS Enoxaparin Sodium 40 mg 08/01/18 22:00 Lovenox SUB-Q QDAY@2200 SILAS Hydralazine HCl 10 mg 08/01/18 01:40 Apresoline IV Q4H PRN Blood Pressure Ceftriaxone Sodium 1 gm in 50 mls @ 100 mls/hr 08/01/18 10:00 08/01/18 11:34 Rocephin/Ns 1 Gm/50 Ml IV 100 mls/hr Q24HR SILAS Administration Protocol Sodium Chloride 1,000 mls @ 125 mls/hr 08/01/18 03:00 08/01/18 13:35 Nacl 0.9% 1000 Ml IV 125 mls/hr DIRECT SILAS Administration Losartan Potassium 25 mg 08/01/18 10:00 08/01/18 11:35 Cozaar PO 25 mg QDAY SILAS Administration Morphine Sulfate 2 mg 08/01/18 01:12 Morphine IV 08/02/18 23:59 Q4H PRN Pain, Moderate (4-6) Nitroglycerin 0.4 mg 08/01/18 01:13 Nitrostat SL Q5M PRN Chest Pain Ondansetron HCl 4 mg 08/01/18 01:12 Zofran IV Q8H PRN Nausea And Vomiting Oxycodone/Acetaminophen 2 tab 08/01/18 11:01 08/01/18 11:34 Percocet 5/325 PO 2 tab Q6H PRN Administration Pain, Moderate (4-6) Oxycodone/Acetaminophen 1 tab 08/01/18 12:03 08/01/18 13:33 Percocet 5/325 PO 1 tab Q6H PRN Administration Pain, Moderate (4-6) Sodium Chloride 10 ml 08/01/18 10:00 08/01/18 11:35 Sodium Chloride Flush Syringe 10 Ml IV 10 ml BID SILAS Administration Sodium Chloride 10 ml 08/01/18 01:12 Sodium Chloride Flush Syringe 10 Ml IV PRN PRN LINE FLUSH
[2018-08-01] MEDS: ZOFRAN IV PRN (19:58)
[2018-08-01] MEDS ORDERED: LOVENOX SUB-Q SCH (22:00)
[2018-08-02] MEDS: NACL 0.9% 1000 ML 1,000 ML IV SCH (06:26)
[2018-08-02 09:20] LABS: Basophils # (Auto) 0.1 K/mm3 (0.0-0.1); Basophils % (Auto) 1.2 % (0.0-1.8); Eosinophils # (Auto) 0.2 K/mm3 (0.0-0.4); Eosinophils % (Auto) 3.3 % (0.0-4.3); Hematocrit 32.6 % (30.3-42.9); Hemoglobin 10.8 gm/dl (10.1-14.3); Lymphocytes # (Auto) 2.6 K/mm3 (1.2-5.4); Lymphocytes % (Auto) 39.6 % (13.4-35.0); Mean Corpuscular HGB Conc 33 % (30-34); Mean Corpuscular Volume 80 fl (79-97); Monocytes # (Auto) 0.4 K/mm3 (0.0-0.8); Monocytes % (Auto) 5.4 % (0.0-7.3); Platelet Count 277 K/mm3 (140-440); Red Blood Count 4.08 M/mm3 (3.65-5.03); Red Cell Distribution Width 14.7 % (13.2-15.2)
[2018-08-02 09:34] LABS: Calcium 8.2 mg/dL (8.4-10.2)
[2018-08-02] MEDS: ROCEPHIN/NS 1 GM/50 ML 1 GM/50 ML BAG IV SCH (09:38)
[2018-08-02] MEDS: COZAAR PO SCH (09:38)
[2018-08-02] MEDS: PERCOCET 5/325 PO PRN (11:07)
[2018-08-02] MEDS: ZOFRAN IV PRN (12:47)
--- NOTE | 2018-08-02 15:18 | Progress Note ---
Assessment and Plan Assessment and plan: 62-year-old -Cub[place] female with history of hypertension and hyperthyroidism presents to [facility] ED with complaints of substernal right sided chest pain. CXR unrevealing for acute cardio or pulmonary abnormalities. Troponin negative 3. D-Dimer elevated at 362 and V/Q scan was negative. Urine analysis showed urine WBC of 145. Acute chest pain - Cardiac enzymes are negative, EKG no STEMI - Stress test is pending, will be done tomorrow because of the VQ scan - Pain control with tramadol Elevated d-dimer; VQ scan low probability for PE Urinary tract infection; patient is on Rocephin Hypertension; resume medications TAMARA vs CKD3; creatinine this morning is 1.3. I'll hold the losartan History of hyperthyroidism; not on any medication DVT prophylaxis - On Lovenox 30 mg Disposition - Continue inpatient care - Will be discharged tomorrow if stress is negative History Interval history: Patient was seen and evaluated this morning, patient still complaining of chest pain. Hospitalist Physical - Physical exam Narrative exam: Not in cardiopulmonary distress. The patient appeared well nourished and normally developed. Vital signs as documented. Head exam is unremarkable. No scleral icterus . Neck is without jugular venous distension, thyromegaly, or carotid bruits. Lungs are clear to auscultation. Cardiac exam reveals regular rate and Rhythm. First and second heart sounds normal. No murmurs, rubs or gallops. Abdominal exam reveals normal bowel sounds, no masses, no organomegaly and no aortic enlargement. Extremities are nonedematous and both femoral and pedal pulses are normal. 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 No focal weakness. - Constitutional Vitals: Temp Pulse Resp BP Pulse Ox 97.9 F 52 L 18 128/72 99 08/02/18 08:02 08/02/18 08:02 08/02/18 08:02 08/02/18 08:02 08/02/18 08:02 Results - Labs CBC & Chem 7: 08/02/18 08:48 08/02/18 08:48 Labs: Laboratory Last Values WBC 6.5 K/mm3 (4.5-11.0) 08/02/18 08:48 RBC 4.08 M/mm3 (3.65-5.03) 08/02/18 08:48 Hgb 10.8 gm/dl (10.1-14.3) 08/02/18 08:48 Hct 32.6 % (30.3-42.9) 08/02/18 08:48 MCV 80 fl (79-97) 08/02/18 08:48 MCH 27 pg (28-32) L 08/02/18 08:48 MCHC 33 % (30-34) 08/02/18 08:48 RDW 14.7 % (13.2-15.2) 08/02/18 08:48 Plt Count 277 K/mm3 (140-440) 08/02/18 08:48 Lymph % (Auto) 39.6 % (13.4-35.0) H 08/02/18 08:48 [place] % (Auto) 5.4 % (0.0-7.3) 08/02/18 08:48 Eos % (Auto) 3.3 % (0.0-4.3) 08/02/18 08:48 Baso % (Auto) 1.2 % (0.0-1.8) 08/02/18 08:48 Lymph # 2.6 K/mm3 (1.2-5.4) 08/02/18 08:48 [place] # 0.4 K/mm3 (0.0-0.8) 08/02/18 08:48 Eos # 0.2 K/mm3 (0.0-0.4) 08/02/18 08:48 Baso # 0.1 K/mm3 (0.0-0.1) 08/02/18 08:48 Seg Neutrophils % 50.5 % (40.0-70.0) 08/02/18 08:48 Seg Neutrophils # 3.3 K/mm3 (1.8-7.7) 08/02/18 08:48 PT 12.9 Sec. (12.2-14.9) 07/31/18 21:51 INR 0.92 (0.87-1.13) 07/31/18 21:51 APTT 30.2 Sec. (24.2-36.6) 07/31/18 21:51 362.45 ng/mlDDU (0-234) H 08/01/18 01:19 Sodium 142 mmol/L (137-145) 08/02/18 08:48 Potassium 3.7 mmol/L (3.6-5.0) 08/02/18 08:48 Chloride 109.3 mmol/L (98-107) H 08/02/18 08:48 Carbon Dioxide 22 mmol/L (22-30) 08/02/18 08:48 14 mmol/L 08/02/18 08:48 BUN 16 mg/dL (7-17) 08/02/18 08:48 1.3 mg/dL (0.7-1.2) H 08/02/18 08:48 Estimated GFR 50 ml/min 08/02/18 08:48 12 % 08/02/18 08:48 Glucose 90 mg/dL (65-100) 08/02/18 08:48 Calcium 8.2 mg/dL (8.4-10.2) L 08/02/18 08:48 < 0.010 ng/mL (0.00-0.029) 08/01/18 01:19 Triglycerides 125 mg/dL (2-149) 08/01/18 01:19 Cholesterol 187 mg/dL (50-199) 08/01/18 01:19 114 mg/dL (50-130) 08/01/18 01:19 68 mg/dL (40-59) H 08/01/18 01:19 2.75 % 08/01/18 01:19 Yellow (Yellow) 07/31/18 21:43 Cloudy (Clear) 07/31/18 21:43 6.0 (5.0-7.0) 07/31/18 21:43 Ur Specific [place] 1.023 (1.003-1.030) 07/31/18 21:43 <15 mg/dl mg/dL (Negative) 07/31/18 21:43 Neg mg/dL (Negative) 07/31/18 21:43 Neg mg/dL (Negative) 07/31/18 21:43 Sm (Negative) 07/31/18 21:43 Neg (Negative) 07/31/18 21:43 Neg (Negative) 07/31/18 21:43 < 2.0 mg/dL (<2.0) 07/31/18 21:43 Ur Leukocyte Esterase Lg (Negative) 07/31/18 21:43 145.0 /HPF (0.0-6.0) H 07/31/18 21:43 29.0 /HPF (0.0-6.0) 07/31/18 21:43 U Epithel Cells (Auto) 13.0 /HPF (0-13.0) 07/31/18 21:43 1+ /HPF (Negative) 07/31/18 21:43 Few /HPF 07/31/18 21:43 Active Medications - Current Medications Current Medications: Generic Name Dose Route Start Last Admin Trade Name Freq PRN Reason Stop Dose Admin Acetaminophen 650 mg 08/01/18 01:12 Tylenol PO Q4H PRN Pain MILD(1-3)/Fever >100.5/[place] Aspirin 81 mg 08/02/18 10:00 Baby Aspirin PO QDAY [facility] Atorvastatin Calcium 20 mg 08/01/18 22:00 08/01/18 21:45 Lipitor PO Not Given QHS [facility] Cyclobenzaprine HCl 5 mg 08/02/18 14:58 Flexeril PO TID [facility] Enoxaparin Sodium 40 mg 08/01/18 22:00 08/01/18 21:37 Lovenox SUB-Q 40 mg QDAY@2200 SILAS Administration Hydralazine HCl 10 mg 08/01/18 01:40 Apresoline IV Q4H PRN Blood Pressure Ceftriaxone Sodium 1 gm in 50 mls @ 100 mls/hr 08/01/18 10:00 08/02/18 09:38 Rocephin/Ns 1 Gm/50 Ml IV 100 mls/hr Q24HR SILAS Administration Protocol Sodium Chloride 1,000 mls @ 125 mls/hr 08/01/18 03:00 08/02/18 06:26 Nacl 0.9% 1000 Ml IV 125 mls/hr DIRECT SILAS Administration Losartan Potassium 25 mg 08/01/18 10:00 08/02/18 09:38 Cozaar PO 25 mg QDAY SILAS Administration Morphine Sulfate 2 mg 08/01/18 01:12 08/01/18 21:37 Morphine IV 08/02/18 23:59 2 mg Q4H PRN Administration Pain, Moderate (4-6) Nitroglycerin 0.4 mg 08/01/18 01:13 Nitrostat SL Q5M PRN Chest Pain Ondansetron HCl 4 mg 08/01/18 01:12 08/02/18 12:47 Zofran IV 4 mg Q8H PRN Administration Nausea And Vomiting Sodium Chloride 10 ml 08/01/18 10:00 08/01/18 23:54 Sodium Chloride Flush Syringe 10 Ml IV Not Given BID SILAS Sodium Chloride 10 ml 08/01/18 01:12 Sodium Chloride Flush Syringe 10 Ml IV PRN PRN LINE FLUSH Tramadol HCl 100 mg 08/02/18 14:57 Ultram PO Q6H PRN Pain, Moderate (4-6)
[2018-08-02] MEDS: FLEXERIL PO SCH ×2 (15:31→20:48)
[2018-08-02] MEDS: BABY ASPIRIN PO SCH (15:32)
[2018-08-02] MEDS: SODIUM CHLORIDE FLUSH SYRINGE 10 ML IV SCH (15:33)
[2018-08-02] MEDS: ULTRAM PO PRN ×2 (18:24→20:49)
[2018-08-02] MEDS ORDERED: LOVENOX SUB-Q SCH (22:00)
[2018-08-03] MEDS: SODIUM CHLORIDE FLUSH SYRINGE 10 ML IV SCH ×2 (05:24→12:32)
[2018-08-03 09:10] LABS: Calcium 8.7 mg/dL (8.4-10.2)
[2018-08-03] MEDS ORDERED: LEXISCAN IV ONE (09:30)
[2018-08-03 12:09] VITALS: BP 146/79
[2018-08-03] MEDS: FLEXERIL PO SCH ×2 (12:30→13:17)
[2018-08-03] MEDS: ROCEPHIN/NS 1 GM/50 ML 1 GM/50 ML BAG IV SCH (12:31)
[2018-08-03] MEDS: BABY ASPIRIN PO SCH (12:31)
[2018-08-03] MEDS: ULTRAM PO PRN (12:41)
--- NOTE | 2018-08-03 13:53 | Discharge Summary ---
Providers - Providers Date of Admission: 08/02/18 10:04 Attending physician: LEONIDAS ZHONG MD 08/01/18 Consult to Cardiac Rehabilitation [CONS] Routine Reason For Exam: Phase I [facility] Reason for admission: chest pain Condition: Stable Pertinent studies: Stress test; negative for acute ischemia Hospital course: 62-year-old -Samoan female with history of hypertension and hyperthyroidism presents to [facility] ED with complaints of substernal right sided chest pain. CXR unrevealing for acute cardio or pulmonary abnormalities. Troponin negative 3. D-Dimer elevated at 362 and V/Q scan was negative. Urine analysis showed urine WBC of 145 . Acute chest pain; Cardiac enzymes are negative, EKG no STEMI Stress test negative for acute ischemia Pain controlled with tramadol Elevated d-dimer; VQ scan low probability for PE Urinary tract infection; patient was on Rocephin and discharged with keflex. Hypertension; resume home medications except losartan controlled TAMARA vs CKD3; creatinine this morning is 1.3. I'll hold the losartan History of hyperthyroidism; not on any medication. Stable Patient's chest pain subsided, patient is hemodynamically stable and discharged home. Disposition: DC-01 TO HOME OR SELFCARE Time spent for discharge: 32 minutes - Discharge Diagnoses (1) Chest pain at rest Status: Acute Core Measure Documentation - Palliative Care Palliative Care/ Comfort Measures: Not Applicable - Core Measures Any of the following diagnoses?: none Exam - Physical Exam Narrative exam: Not in cardiopulmonary distress. The patient appeared well nourished and normally developed. Vital signs as documented. Head exam is unremarkable. No scleral icterus . Neck is without jugular venous distension, thyromegaly, or carotid bruits. Lungs are clear to auscultation. Cardiac exam reveals regular rate and Rhythm. First and second heart sounds normal. No murmurs, rubs or gallops. Abdominal exam reveals normal bowel sounds, no masses, no organomegaly and no aortic enlargement. Extremities are nonedematous and both femoral and pedal pulses are normal. 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 No focal weakness. - Constitutional Vitals: Temp Pulse Resp BP Pulse Ox 98.4 F 65 18 146/79 98 08/03/18 12:08 08/03/18 12:08/03/18 12:08/03/18 12:08/03/18 12:08 Plan Activity: no restrictions Weight Bearing Status: Full Weight Bearing Diet: low cholesterol Follow up with: MIGUEL ANGEL HERNANDEZ MD [Primary Care Provider] - 3-5 Days Prescriptions: Cyclobenzaprine [Flexeril 10 MG TAB] 5 mg PO TID PRN #15 tablet PRN Reason: Muscle Spasm traMADol [Ultram 50 MG tab] 100 mg PO Q6H PRN #20 tablet PRN Reason: Pain, Moderate (4-6)
--- NOTE | 2018-08-03 20:28 | Treadmill Report ---
THALLIUM STRESS TEST LEFT VENTRICLE: Left ventricular chamber size is within normal spread. Perfusion study demonstrates a small fixed apical defect with no reversibility in the resting study. Gated analysis demonstrates normal left ventricular systolic function, ejection fraction 73%. CONCLUSION: Small apical defect consistent with normal apical thinning, cannot exclude breast attenuation artifact. Otherwise, this is a normal perfusion study. No ischemia demonstrated. JOB# [id number] CA/NTS
== END 2018-08-03 15:40 | disposition home or self-care (01) | DRG 683 ==
LOC: ED 20:26 → 4A 08-01 01:12 → EEVIPCON 08-02 10:04 → OBSVTOIN 08-02 10:04
PROVIDERS: ADMIT Internal Medicine; ATTEND Internal Medicine
DX: N17.9 Acute kidney failure, unspecified (principal); N39.0 Urinary tract infection, site not specified; N18.3 Chronic kidney disease, stage 3 (moderate); I12.9 Hypertensive chronic kidney disease with stage 1 through stage 4 chronic kidney disease, or unspecified chronic kidney disease; R07.89 Other chest pain
CPT/HCPCS: 36415; 71046; 78452; 78582; 80048; 80061; 81001; 84484; 85025; 85379; 85610; 85730; 87086; 93005; 93010; 93017; 96365; 99291; G0378; A9270-GY; A9502; A9540; A9558; J0696; J1650; J1956; J2270; J2405; J2785; J7030

== ENCOUNTER 2018-08-17 07:13 | Outpatient (CLI) | payer BC ==
--- NOTE | 2018-08-21 08:27 | Magnetic Resonance Report ---
MRI LUMBAR SPINE WITHOUT CONTRAST HISTORY: Left lower extremity pain thought to be originating in lumbar spine, left lower extremity radiculopathy. TECHNIQUE: axial T1, T2. sagittal T1,T2, STIR. COMPARISON: none. FINDINGS: The conus terminates at L1. No signal abnormality or mass. The cauda equina is within normal limits. No central canal stenosis. There has been previous left unilateral posterior fusion at L3-4 with transpedicular screws and disc spacer placement. The hardware generates mild artifact but appears to be in good position. There is normal height and alignment of the lumbar vertebra. Normal bone marrow signal. There is mild diffuse disc desiccation throughout the lumbar spine. Moderate disc space narrowing is identified at L3-4. Mild disc space narrowing at L2-3 and L4-5. L1-2: No significant abnormality. L2-3: No significant abnormality with the disc. Mild to moderate facet arthropathy. No central canal or neural foraminal narrowing. L3-4: Surgical changes generate mild artifact. Mild left lateral bulging disc is identified. There is mild to moderate facet arthropathy and hypertrophy of the ligamentum flavum. No significant central canal narrowing. There is moderate left neural foraminal narrowing estimated at 50-75%. No significant right neural foraminal narrowing. L4-5: A mild diffuse posterior bulging disc is identified. Moderate facet arthropathy and hypertrophy of the ligamentum flavum. There is moderate to severe left neural foraminal narrowing estimated at 75%. Right neural foraminal narrowing is estimated at 25%. L5-S1: No significant abnormality. IMPRESSION: Posterior fusion changes at L3-4 as described above. There are [id number] degenerative changes at L2-3, L3-4 and L4-5 as outlined above. Left neural foraminal narrowing is suspected at L3-4 and L4-5. Please correlate with the patient's clinical presentation.
--- NOTE | 2018-08-21 08:32 | Magnetic Resonance Report ---
MR LOWER EXTREMITY JOINT LEFT WITHOUT CONTRAST History: Left lower extremity pain, left knee pain. Technique: Multisequence, multiplanar MRI with and without fat suppression was performed through the left knee. No IV gadolinium was administered. Comparison: None. Findings: There is normal bone marrow signal throughout the visualized left knee. No evidence for fracture, bone marrow edema or suspicious bone lesion. There is mild cartilage thinning in the medial and lateral compartments which appears appropriate for this patient's age. No large cartilage defect or osteochondral defect is detected. The retropatellar cartilage is normal. The medial and lateral menisci are intact with no evidence of significant degeneration or tear. The ACL, PCL, MCL, LCL complex and extensor complex are intact and unremarkable. Para-articular soft tissues are within normal limits. No joint effusion or popliteal cyst is identified. IMPRESSION: Unremarkable MR of the left knee.
== END 2018-08-17 07:14 | disposition home or self-care (01) ==
LOC: MRI 07:13
PROVIDERS: ATTEND Emergency Medicine
DX: M51.26 Other intervertebral disc displacement, lumbar region (principal); M47.816 Spondylosis without myelopathy or radiculopathy, lumbar region; M43.26 Fusion of spine, lumbar region; M79.605 Pain in left leg; I10 Essential (primary) hypertension
CPT/HCPCS: 72148

== ENCOUNTER 2018-08-30 13:50 | Outpatient (CLI) | payer BC ==
--- NOTE | 2018-08-30 18:28 | Magnetic Resonance Report ---
MRI LUMBAR SPINE WITH CONTRAST INDICATION / CLINICAL INFORMATION: RADICULOPATHY LUMBAR REGION. Prior lumbar surgery. TECHNIQUE: Multisequence, multiplanar images of the lumbar spine were obtained. COMPARISON: CT lumbar spine without contrast 08/09/2018 and MRI lumbar spine without contrast 08/17/2018. FINDINGS: POSTOPERATIVE CHANGES: Patient is status post interbody fusion and unilateral left-sided segmental in strumentation at the L3-4 level. Interbody spacer and surgical hardware appear to be in satisfactory position. ALIGNMENT: Normal alignment is maintained throughout the lumbar region. VERTEBRAE:Aside from postoperative changes normal bone marrow signal intensity is maintained througho ut. DISC MORPHOLOGY:Disc height and disc signal intensity are decreased slightly at the L4-5 level bu t normally maintained elsewhere, aside from the postoperative L3-4 disc.. VISUALIZED SPINAL CORD: Distal thoracic spinal cord, conus and nerve roots of the cauda equina all blakely ve an unremarkable appearance. Conus terminates at about the level of the mid L1 vertebral body. [id number] ANALYSIS: L1-2: No significant abnormality. L2-3: No significant abnormality. L3-4: Status post left-sided unilateral segmental instrumentation and posterior lateral interbody fus ion. Surgical hardware is in satisfactory position. There is enhancement in the adjacent posterior pa raspinous musculature (erector spinae and multifidus muscles). There is enhancement in the left L3 ne rve root neural foramina. This is likely a postoperative change, perhaps postoperative granulation ti ssue. Correlation with date of recent surgery is suggested. No unexpected areas of abnormal contrast enhancement are identified. Central spinal canal is adequate in size. There is no indication of bony neuroforaminal narrowing. There appears to be fusion bone along the left lateral aspect of the facet joints, lamina and spinous processes of L3 and L4. Radiolucency through this possible fusion bone mas s was noted on recent CT examination. L4-5: No significant abnormality. L5-S1: No significant abnormality. PARASPINAL SOFT TISSUES: Evaluation of the paraspinous soft tissues reveals no definite abnormalities . ADDITIONAL FINDINGS: None. IMPRESSION: 1. Postoperative changes at L3-4 status post left-sided unilateral segmental instrumentation and inte rbody fusion. 2. Enhancement is present in the posterior paraspinous musculature and left L3 nerve root neural fora jg. This likely represents postoperative granulation tissue versus epidural fibrotic change dependi ng on the date of the patient's L3-4 surgery. Signer Name: Suman Kevin MD Signed: 08/30/2018 6:23 PM Workstation Name: [id number]
== END 2018-08-30 13:51 | disposition home or self-care (01) ==
LOC: MRI 13:50
PROVIDERS: ATTEND Physical Medicine & Rehabilitation
DX: M43.26 Fusion of spine, lumbar region (principal); I10 Essential (primary) hypertension
CPT/HCPCS: 36415; 72149; 82565; 84520; A9577

== ENCOUNTER 2018-11-29 16:28 | Outpatient (CLI) | payer BC ==
[2018-11-29 17:22] LABS: Basophils # (Auto) 0.1 K/mm3 (0.0-0.1); Basophils % (Auto) 0.9 % (0.0-1.8); Eosinophils # (Auto) 0.2 K/mm3 (0.0-0.4); Eosinophils % (Auto) 2.2 % (0.0-4.3); Hematocrit 35.2 % (30.3-42.9); Hemoglobin 11.9 gm/dl (10.1-14.3); Lymphocytes # (Auto) 3.1 K/mm3 (1.2-5.4); Lymphocytes % (Auto) 37.3 % (13.4-35.0); Mean Corpuscular HGB Conc 34 % (30-34); Mean Corpuscular Volume 80 fl (79-97); Monocytes # (Auto) 0.5 K/mm3 (0.0-0.8); Monocytes % (Auto) 5.7 % (0.0-7.3); Platelet Count 342 K/mm3 (140-440); Red Blood Count 4.43 M/mm3 (3.65-5.03); Red Cell Distribution Width 14.9 % (13.2-15.2)
[2018-11-29 17:58] LABS: Albumin 4.5 g/dL (3.9-5); Calcium 9.9 mg/dL (8.4-10.2)
== END 2018-11-29 16:29 | disposition home or self-care (01) ==
LOC: LAB 16:28
PROVIDERS: ATTEND Physician Assistant
DX: E05.90 Thyrotoxicosis, unspecified without thyrotoxic crisis or storm (principal); I10 Essential (primary) hypertension
CPT/HCPCS: 36415; 80053; 84439; 84443; 84480; 85025

== ENCOUNTER 2020-02-15 16:10 | Emergency (ER) | payer BC ==
[2020-02-15 16:30] LABS: Hematocrit 36.7 % (30.3-42.9); Hemoglobin 12.2 gm/dl (10.1-14.3); Mean Corpuscular HGB Conc 33 % (30-34); Mean Corpuscular Volume 81 fl (79-97); Platelet Count 331 K/mm3 (140-440); Red Blood Count 4.52 M/mm3 (3.65-5.03); Red Cell Distribution Width 15.2 % (13.2-15.2)
[2020-02-15 16:50] LABS: Albumin 4.1 g/dL (3.9-5); Calcium 9.9 mg/dL (8.4-10.2); Chol/HDL Ratio 2.8 %
== END 2020-02-15 17:00 | disposition left against medical advice (07) ==
LOC: ED 16:10
DX: Z53.21 Procedure and treatment not carried out due to patient leaving prior to being seen by health care provider (principal)
CPT/HCPCS: 36415; 80053; 80061; 83036; 84439; 84443; 85027

== ENCOUNTER 2020-09-29 07:24 | Emergency (ER) | payer BC ==
[2020-09-29 07:34] VITALS: BP 128/90
--- NOTE | 2020-09-29 07:44 | Emergency Department Report ---
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 She also states her ears feel like they are plugged since yesterday. Patient has a past medical history of hypertension hyper parathyroidism. 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) Associated Symptoms: sore throat, shortness of breath, other (ears are stopped up) Treatments Prior to Arrival: none - Related Data Home Medications Medication Instructions Recorded Confirmed Last Taken Olmesartan/Hydrochlorothiazide 1 tab PO QDAY 08/01/18 08/01/18 Unknown [Benicar HCT 40-25 mg] Previous Rx's Medication Instructions Recorded Last Taken Type Cyclobenzaprine [Flexeril 10 MG 5 mg PO TID PRN #15 tablet 08/03/18 Unknown Rx TAB] traMADoL [Ultram 50 MG tab] 100 mg PO Q6H PRN #20 tablet 08/03/18 Unknown Rx Cyclobenzaprine [Flexeril] 10 mg PO TID PRN #10 tablet 08/07/18 Unknown Rx HYDROcodone/APAP 5-325 [[place] 1 each PO Q6HR PRN #10 tablet 08/07/18 Unknown Rx 5/325] Naproxen [Naprosyn] 500 mg PO BID PRN #20 tablet 08/07/18 Unknown Rx predniSONE [Deltasone] 20 mg PO DAILY #5 tablet 08/07/18 Unknown Rx Allergies Allergy/AdvReac Type Severity Reaction Status Date / Time No Known Allergies Allergy Verified 12/01/18 08:32 ED Review of Systems ROS: Stated complaint: SORE THROAT, SOB Other details as noted in HPI Comment: All other systems reviewed and negative ED Past Medical Hx - Past Medical History Previous Medical History?: Yes Hx Hypertension: Yes Hx Congestive Heart Failure: No Hx Diabetes: No Hx Asthma: No Hx COPD: No Additional medical history: hyperthyroidism - Surgical History Past Surgical History?: Yes Additional Surgical History: back surgery 2011 - Social History Smoking Status: Never Smoker Substance Use Type: None - Medications Home Medications: Home Medications Medication Instructions Recorded Confirmed Last Taken Type Olmesartan/Hydrochlorothiazide 1 tab PO QDAY 08/01/18 08/01/18 Unknown History [Benicar HCT 40-25 mg] Cyclobenzaprine [Flexeril 10 MG 5 mg PO TID PRN #15 tablet 08/03/18 Unknown Rx TAB] traMADoL [Ultram 50 MG tab] 100 mg PO Q6H PRN #20 tablet 08/03/18 Unknown Rx Cyclobenzaprine [Flexeril] 10 mg PO TID PRN #10 tablet 08/07/18 Unknown Rx HYDROcodone/APAP 5-325 [[place] 1 each PO Q6HR PRN #10 tablet 08/07/18 Unknown Rx 5/325] Naproxen [Naprosyn] 500 mg PO BID PRN #20 tablet 08/07/18 Unknown Rx predniSONE [Deltasone] 20 mg PO DAILY #5 tablet 08/07/18 Unknown Rx ED Physical Exam - General Limitations: No Limitations General appearance: alert, in no apparent distress - Head Head exam: Present: atraumatic, normocephalic - Eye Eye exam: Present: normal appearance - ENT ENT exam: Present: normal orophraynx, mucous membranes moist, other (Hoarseness) - Neck Neck exam: Present: normal inspection - Respiratory Respiratory exam: Present: rhonchi (Slight). Absent: respiratory distress, accessory muscle use - Cardiovascular Cardiovascular Exam: Present: regular rate, normal rhythm. Absent: systolic murmur, diastolic murmur, rubs, gallop - GI/Abdominal GI/Abdominal exam: Present: soft. Absent: distended, tenderness - Back Exam Back exam: Present: normal inspection - Neurological Exam Neurological exam: Present: alert, oriented X3, normal gait - Psychiatric Psychiatric exam: Present: normal affect, normal mood - Skin Skin exam: Present: warm, dry, intact, normal color. Absent: rash ED Course Vital Signs 09/29/20 07:33 Temperature 98.3 F Pulse Rate 78 Respiratory 20 Rate Blood Pressure 128/90 O2 Sat by Pulse 98 Oximetry - Reevaluation(s) Reevaluation #1: 09/29/20 1030 Patient reports she feels somewhat better she has exams reveals she has some chest congestion. Albuterol inhaler treatment was ordered. Patient was given prednisone. Reevaluation #2: 09/29/20 11:18 Patient states after breathing treatment she feels a little bit better. Patient be discharged home ED Medical Decision Making - Radiology Data Radiology results: report reviewed Institution [facility] 2 Approval Date 2020-09-29 08:13:32 Other Patient ID My Comment(s) Study Comments [facility] [address] [place] [address] XRay Report Signed Patient: NEFTALY MAYER MR#: [id number] : 1955 Acct:[id number] Age/Sex: 65 / F ADM Date: 09/29/20 Loc: ED Attending Dr: Ordering Physician: LAUREN IGNACIO Date of Service: 09/29/20 Procedure(s): XR chest routine 2V Accession Number(s): [id number] cc: LAUREN IGNACIO Fluoro Time In Minutes: XR chest routine 2V INDICATION / CLINICAL INFORMATION: sob. COMPARISON: 07/31/2018 FINDINGS: SUPPORT DEVICES: None. HEART /PULMONARY VASCULATURE: No significant abnormality. LUNGS / PLEURA: No significant pulmonary or pleural abnormality. No pneumothorax. ADDITIONAL FINDINGS: No significant additional findings. IMPRESSION: 1. No acute findings. Signer Name: Florentin Egan MD Signed: 09/29/2020 8:07 AM Workstation Name: [id number] Transcribed By: JS Dictated By: FLORENTIN EGAN MD Electronically Authenticated By: FLORENTIN EGAN MD Signed Date/Time: 09/29/20806 DD/ 4 TD/TT: Critical care attestation.: If time is entered above; I have spent that time in minutes in the direct care of this critically ill patient, excluding procedure time. ED Disposition Clinical Impression: Shortness of breath, Sore throat and laryngitis Disposition: DC-01 TO HOME OR SELFCARE Is pt being admited?: No Does the pt Need Aspirin: No Condition: Stable Instructions: Shortness of Breath, Adult, [id number], Pharyngitis, [id number] Additional Instructions: Please increase your fluid. Tylenol ibuprofen warm salt gargles voice rest. You can try using Flonase or Claritin-D. Follow-up with your primary care ben aranda in the next 3 to 5 days if symptoms persist. Also recommend Covid test. Referrals: Your, primary care provider [Other] - 3-5 Days Forms: Work/School Release Form(ED) Time of Disposition: 11:21
--- NOTE | 2020-09-29 08:11 | XRay Report ---
XR chest routine 2V INDICATION / CLINICAL INFORMATION: sob. COMPARISON: 07/31/2018 FINDINGS: SUPPORT DEVICES: None. HEART /PULMONARY VASCULATURE: No significant abnormality. LUNGS / PLEURA: No significant pulmonary or pleural abnormality. No pneumothorax. ADDITIONAL FINDINGS: No significant additional findings. IMPRESSION: 1. No acute findings. Signer Name: Triston Egan MD Signed: 09/29/2020 8:07 AM Workstation Name: [id number]
[2020-09-29] MEDS ORDERED: ALBUTEROL 2.5 MG/3 ML NEBU IH ONE (09:49)
[2020-09-29] MEDS ORDERED: predniSONE 20 MG TAB PO ONE (09:49)
== END 2020-09-29 11:43 | disposition home or self-care (01) ==
LOC: ED 07:24
DX: J06.0 Acute laryngopharyngitis (principal); R06.02 Shortness of breath; I10 Essential (primary) hypertension; Z79.899 Other long term (current) drug therapy; Z98.890 Other specified postprocedural states
CPT/HCPCS: 71046; 87116; 87430; 94640; 99284; J7512; 94644

== ENCOUNTER 2021-05-31 07:59 | Emergency (ER) | payer BC ==
--- NOTE | 2021-05-31 08:42 | XRay Report ---
LEFT FOOT 3 VIEW(S) INDICATION / CLINICAL INFORMATION: pain COMPARISON: None available. FINDINGS: BONES / JOINT(S): No acute fracture or subluxation. No significant arthritis. SOFT TISSUES: No significant abnormality. ADDITIONAL FINDINGS: None. IMPRESSION: 1. No acute findings. Signer Name: Jim Villeda MD Signed: 05/31/2021 8:37 AM Workstation Name: [id number]
[2021-05-31] MEDS ORDERED: predniSONE 20 MG TAB PO ONE (08:57)
[2021-05-31] MEDS ORDERED: KETOROLAC 10 MG TAB PO ONE (08:57)
[2021-05-31] MEDS ORDERED: COLCHICINE 0.6 MG TAB PO ONE (08:57)
--- NOTE | 2021-05-31 09:01 | Emergency Department Report ---
ED Extremity Problem HPI - General Chief complaint: Extremity Injury, Lower Stated complaint: PAIN UNDER LT FOOT Time Seen by Provider: 05/31/21 08:17 Source: patient Mode of arrival: Ambulatory Limitations: No Limitations - History of Present Illness Initial comments: 65-year-old black female with a past medical history of hypertension and hypothyroidism presents to the emergency department for evaluation of left foot pain. She states that she developed left foot pain yesterday after she woke up, and she denies any injury or trauma. She states that pain has become progressively worse and now pain is 9 out of 10 and worse with any touch. MD Complaint: extremity pain, extremity swelling -: Sudden, days(s) (1) Location: left, lower extremity History of Same: No -: No myalgia, No arthralgia, No fever, No associated dyspnea, No associated chest pain Radiation: none Severity scale (0 -10): 10 Quality: aching Consistency: constant Worsens with: weight bearing, walking, palpation Associated Symptoms: denies: chest pain, shortness of breath, fever, myalgias, arthralgias, rash - Related Data Home Medications Medication Instructions Recorded Confirmed Last Taken Olmesartan/Hydrochlorothiazide 1 tab PO QDAY 08/01/18 08/01/18 Unknown [Benicar HCT 40-25 mg] Previous Rx's Medication Instructions Recorded Last Taken Type Cyclobenzaprine [Flexeril 10 MG 5 mg PO TID PRN #15 tablet 08/03/18 Unknown Rx TAB] traMADoL [Ultram 50 MG tab] 100 mg PO Q6H PRN #20 tablet 08/03/18 Unknown Rx Cyclobenzaprine [Flexeril] 10 mg PO TID PRN #10 tablet 08/07/18 Unknown Rx HYDROcodone/APAP 5-325 [[place] 1 each PO Q6HR PRN #10 tablet 08/07/18 Unknown Rx 5/325] Naproxen [Naprosyn] 500 mg PO BID PRN #20 tablet 08/07/18 Unknown Rx predniSONE [Deltasone] 20 mg PO DAILY #5 tablet 08/07/18 Unknown Rx Colchicine 0.6 mg PO DAILY 5 Days #10 tab 05/31/21 Unknown Rx Indomethacin [Indocin] 25 mg PO Q8H PRN #12 cap 05/31/21 Unknown Rx predniSONE [Deltasone] 50 mg PO QDAY #5 tab 05/31/21 Unknown Rx Allergies Allergy/AdvReac Type Severity Reaction Status Date / Time No Known Allergies Allergy Verified 12/01/18 08:32 ED Review of Systems ROS: Stated complaint: PAIN UNDER LT FOOT Other details as noted in HPI Comment: All other systems reviewed and negative Constitutional: denies: chills, fever Respiratory: denies: shortness of breath, SOB with exertion, SOB at rest Cardiovascular: denies: chest pain Gastrointestinal: denies: abdominal pain, nausea, vomiting Skin: denies: rash, lesions Neurological: denies: headache, weakness ED Past Medical Hx - Past Medical History Hx Hypertension: Yes Hx Congestive Heart Failure: No Hx Diabetes: No Hx Asthma: No Hx COPD: No Additional medical history: hypothyroid - Surgical History Additional Surgical History: back surgery 2011 - Social History Smoking Status: Never Smoker Substance Use Type: None - Medications Home Medications: Home Medications Medication Instructions Recorded Confirmed Last Taken Type Olmesartan/Hydrochlorothiazide 1 tab PO QDAY 08/01/18 08/01/18 Unknown History [Benicar HCT 40-25 mg] Cyclobenzaprine [Flexeril 10 MG 5 mg PO TID PRN #15 tablet 08/03/18 Unknown Rx TAB] traMADoL [Ultram 50 MG tab] 100 mg PO Q6H PRN #20 tablet 08/03/18 Unknown Rx Cyclobenzaprine [Flexeril] 10 mg PO TID PRN #10 tablet 08/07/18 Unknown Rx HYDROcodone/APAP 5-325 [[place] 1 each PO Q6HR PRN #10 tablet 08/07/18 Unknown Rx 5/325] Naproxen [Naprosyn] 500 mg PO BID PRN #20 tablet 08/07/18 Unknown Rx predniSONE [Deltasone] 20 mg PO DAILY #5 tablet 08/07/18 Unknown Rx Colchicine 0.6 mg PO DAILY 5 Days #10 tab 05/31/21 Unknown Rx Indomethacin [Indocin] 25 mg PO Q8H PRN #12 cap 05/31/21 Unknown Rx predniSONE [Deltasone] 50 mg PO QDAY #5 tab 05/31/21 Unknown Rx ED Physical Exam - General Limitations: No Limitations General appearance: alert, in no apparent distress - Head Head exam: Present: atraumatic, normocephalic - Eye Eye exam: Present: normal appearance. Absent: conjunctival injection - Respiratory Respiratory exam: Absent: respiratory distress - GI/Abdominal GI/Abdominal exam: Absent: distended - Expanded Lower Extremity Exam Left Foot/Toe exam: Present: tenderness, swelling, erythema. Absent: normal inspection (Tenderness, warmth, and erythema noted to great toe joint area), abrasion, laceration, ecchymosis, dislocation, calcaneal tenderness Neuro vascular tendon exam: Present: no vascular compromise. Absent: pulse deficit, abnormal cap refill, motor deficit, sensory deficit, tendon deficit, extremity cold to touch, pallor Gait: Positive: observed and limited by pain - Back Exam Back exam: Present: normal inspection - Neurological Exam Neurological exam: Present: alert, oriented X3 - Psychiatric Psychiatric exam: Present: normal affect, normal mood - Skin Skin exam: Present: warm, dry, intact, normal color ED Medical Decision Making - Medical Decision Making 65-year-old black female with a past medical history of hypertension and hypothyroidism presents to the emergency department for evaluation of left foot pain. She states that she developed left foot pain yesterday after she woke up, and she denies any injury or trauma. She states that pain has become progressively worse and now pain is 9 out of 10 and worse with any touch. Symptoms and exam consistent with gout. Patient will be treated with steroids, anti-inflammatories, and colchicine over the next 5 days. She is advised to take medications as prescribed, adjust diet, drink plenty of noncaffeinated fluids, and follow-up with primary care provider if no improvement or worsening symptoms. She verbalized understanding of and agreement with plan of care. Critical care attestation.: If time is entered above; I have spent that time in minutes in the direct care of this critically ill patient, excluding procedure time. ED Disposition Clinical Impression: Gout attack Qualifiers: Gout site: toe Gout etiology: unspecified cause Laterality: left Qualified Code(s): M10.9 - Gout, unspecified Disposition: 01 HOME / SELF CARE / HOMELESS Is pt being admited?: No Does the pt Need Aspirin: No Condition: Stable Instructions: Low-Purine Eating Plan Additional Instructions: Take medications as prescribed. Follow-up with primary care provider if no improvement or worsening symptoms. Return to the emergency department as needed. Prescriptions: Colchicine 0.6 mg PO DAILY 5 Days #10 tab predniSONE [Deltasone] 50 mg PO QDAY #5 tab Indomethacin [Indocin] 25 mg PO Q8H PRN #12 cap PRN Reason: Pain , Severe (7-10) Referrals: MINDI BRYANT MD [Referring] - 3-5 Days Time of Disposition: 09:01
== END 2021-05-31 09:09 | disposition home or self-care (01) ==
LOC: ED 07:59
DX: M10.9 Gout, unspecified (principal); I10 Essential (primary) hypertension
CPT/HCPCS: 99283